=== PATIENT | male | born 1990 | race African-American/Black ===

== ENCOUNTER 2021-02-01 10:16 | Emergency (ER) | payer SELFPAY ==
[~2021-02-01] VITALS: Ht 177.8 cm; Wt 85.0 kg
[2021-02-01] MEDS ORDERED: IV NORMAL SALINE 1000ML BAG 1,000 ML IV SCH (10:30)
[2021-02-01] MEDS ORDERED: fentaNYL PF VIAL 100 MCG/2 ML VIAL IVP ONE (10:30)
[2021-02-01] MEDS ORDERED: ONDANSETRON PF 4 MG/2 ML VIAL. IVP ONE (10:30)
--- NOTE | 2021-02-01 10:32 | PHYS DOC ---
General Adult EDM: Chief Complaint: FLANK PAIN HPI: HPI: Patient is a 30-year-old male who presents to the emergency department for left upper quadrant pain that started this morning with nausea, vomiting and diarrhea. Patient states that he vomited 5-10 times today. He rates his pain 10 out of 10, does not radiate. He states that he took Catherine-Chilcoot, Tums and Tylenol prior to arrival. Patient is a daily drinker and drank a half a pint of liquor yesterday. Patient states that he has no medical history, surgical history. He denies any sick exposures, fevers, flank pain, blood in stools, dysuria, urinary frequency. Review of Systems: Review of Systems: Constitutional: See HPI GI: See HPI : See HPI Musculoskeletal: See HPI Heart Score: C/O Chest Pain: N/A Risk Factors: Risk Factors: DM, Current or recent (<one month) smoker, HTN, HLP, family history of CAD, obesity. Risk Scores: Score 0 - 3: 2.5% MACE over next 6 weeks - Discharge Home Score 4 - 6: 20.3% MACE over next 6 weeks - Admit for Clinical Observation Score 7 - 10: 72.7% MACE over next 6 weeks - Early Invasive Strategies Physical Exam: PE: Constitutional: Well developed, well nourished, no acute distress, non-toxic appearance. [] HENT: Normocephalic, atraumatic, bilateral external ears normal, oropharynx moist, no oral exudates, nose normal. [] Eyes: PERRL, EOMI, conjunctiva normal, no discharge. [] Neck: Normal range of motion, no stridor Cardiovascular:Heart rate regular rhythm, no murmur [] Lungs & Thorax: Bilateral breath sounds clear to auscultation [] Abdomen: Bowel sounds normal, soft, no guarding, no ridigity, negative murphys sign, negative rovsings sign, tenderness with palpation to LUQ, no rebound tenderness, no masses, no pulsatile masses. [] Skin: Warm, dry, no erythema, no rash. [] Back: No tenderness, no CVA tenderness. [] Extremities: No tenderness, no cyanosis, no clubbing, ROM intact, no edema. [] Neurologic: Alert and oriented X 3, normal motor function, normal sensory function, no focal deficits noted. [] Psychologic: Affect normal, judgement normal, mood normal. [] Current Patient Data: Labs: Laboratory Tests Test 02/01/21 10:25 02/01/21 10:44 Urine Collection Type Unknown Urine Color Delores Urine Clarity Clear Urine pH 7.0 Urine Specific [place] >=1.030 Urine Protein Negative mg/dL Urine Glucose (UA) Negative mg/dL Urine Ketones (Stick) Negative mg/dL Urine Blood Negative Urine Nitrite Negative Urine Bilirubin Negative Urine Urobilinogen Dipstick 0.2 mg/dL Urine Leukocyte Esterase Negative Urine RBC 0 /HPF Urine WBC 0 /HPF Urine Squamous Epithelial Cells Few /LPF Urine Bacteria 0 /HPF Urine Mucus Mod /LPF Urine Opiates Screen Neg Urine Methadone Screen Neg Urine Barbiturates Neg Urine Phencyclidine Screen Neg Urine Amphetamine/Methamphetamine Neg Urine Benzodiazepines Screen Neg Urine Cocaine Screen Pos Urine Cannabinoids Screen Pos Urine Ethyl Alcohol Neg White Blood Count 11.5 x10^3/uL Red Blood Count 5.14 x10^6/uL Hemoglobin 15.1 g/dL Hematocrit 45.5 % Mean Corpuscular Volume 89 fL Mean Corpuscular Hemoglobin 29 pg Mean Corpuscular Hemoglobin Concent 33 g/dL Red Cell Distribution Width 14.7 % Platelet Count 234 x10^3/uL Neutrophils (%) (Auto) 87 % Lymphocytes (%) (Auto) 9 % Monocytes (%) (Auto) 4 % Eosinophils (%) (Auto) 0 % Basophils (%) (Auto) 0 % Neutrophils # (Auto) 10.0 x10^3/uL Lymphocytes # (Auto) 1.0 x10^3/uL Monocytes # (Auto) 0.5 x10^3/uL Eosinophils # (Auto) 0.0 x10^3/uL Basophils # (Auto) 0.0 x10^3/uL Sodium Level 141 mmol/L Potassium Level 3.9 mmol/L Chloride Level 103 mmol/L Carbon Dioxide Level 27 mmol/L Anion Gap 11 Blood Urea Nitrogen 16 mg/dL Creatinine 0.8 mg/dL Estimated GFR (Cockcroft-Gault) 135.6 BUN/Creatinine Ratio 20 Glucose Level 102 mg/dL Calcium Level 9.1 mg/dL Total Bilirubin 0.5 mg/dL Aspartate Amino Transf (AST/SGOT) 19 U/L Alanine Aminotransferase (ALT/SGPT) 21 U/L Alkaline Phosphatase 66 U/L Total Protein 7.4 g/dL Albumin 3.8 g/dL Albumin/Globulin Ratio 1.1 Lipase 65 U/L Current Medications Medications (Trade) Dose Ordered Sig/Froilan Route PRN Reason Start Time Stop Time Status Last Admin Dose Admin Sodium Chloride 1,000 ml @ 1,000 mls/hr Q1H IV 02/01/21 10:30 02/01/21 11:29 DC 02/01/21 10:30 Fentanyl Citrate (Fentanyl 2ml Vial) 50 mcg 1X ONCE IVP 02/01/21 10:30 02/01/21 10:31 DC 02/01/21 10:43 Ondansetron HCl (Zofran) 4 mg 1X ONCE IVP 02/01/21 10:30 02/01/21 10:31 DC 02/01/21 10:43 Iohexol (Omnipaque 300 Mg/ml) 75 ml 1X ONCE IV 02/01/21 11:30 02/01/21 11:31 DC 02/01/21 11:41 Info (CONTRAST GIVEN -- Rx MONITORING) 1 each PRN DAILY PRN MC SEE COMMENTS 02/01/21 11:30 02/01/21 12:22 DC EKG: EKG: [] Radiology/Procedures: Radiology/Procedures: []PROCEDURE: CT ABD PELV W/ IV CONTRST ONLY EXAM: Abdomen and pelvis CT with intravenous contrast. HISTORY: Left upper quadrant pain. TECHNIQUE: Computed tomographic images of the abdomen and pelvis were obtained following the administration of intravenous contrast. Multiplanar reformatting was performed. *One or more of the following individualized dose reduction techniques were utilized for this examination: 1. Automated exposure control. 2. Adjustment of the mA and/or kV according to patient size. 3. Use of iterative reconstruction technique. COMPARISON: None. FINDINGS: The exam is limited due to motion. Evaluation of the lower thorax is unremarkable. No focal hepatic lesion is seen. The gallbladder, pancreas, spleen, adrenal glands and kidneys are unremarkable. The appendix is not seen. There are no secondary findings to suggest appendicitis. There is no bowel obstruction. There is no abnormal bowel wall thickening. There is no free air. The bladder is nearly empty. The aorta is normal in caliber. There is no lymphadenopathy. There is no acute or suspicious osseous finding. IMPRESSION: 1. No convincing acute abdominal or pelvic finding. 2. Limited exam due to motion. Electronically signed by: Radha Logan MD (02/01/2021 11:49 AM) [id number] DICTATED and SIGNED BY: RADHA LOGAN MD DATE: 02/01/21 [id number] 0 Course & Med Decision Making: Course & Med Decision Making Pertinent Labs and Imaging studies reviewed. (See chart for details) Patient presents to the emergency department for left upper quadrant pain with nausea, vomiting and diarrhea that started this morning. Patient is a daily drinker and drank a half a pint of liquor yesterday. Patient denies any urinary symptoms. Work-up in the ER consisted of blood work, urinalysis and CT imaging of abdomen and pelvis. Patient was treated with IV fluids, nausea medication and pain medication. Patient's urinalysis was unremarkable. Negative CBC, negative CMP, negative lipase. UDS was positive for cocaine and marijuana. Imaging of patient's abdomen and pelvis showed no acute findings. Patient was able to tolerate oral intake while in the ER. Patient be discharged home with nausea medication and advised to take Imodium [id number]. Patient will be Covid tested prior to ER departure will be notified of those results when they become available in approximately 2 days. I discussed with patient all findings and diagnostic testing as well as the need to follow-up with PCP for further evaluation and treatment or return to the ER if any new or worsening symptoms. Strict return precautions were also discussed at length. Patient voiced understanding and agreement with the plan. Patient is hemodynamically stable at the time of disposition. Dragon Disclaimer: Dragmikki Disclaimer: This electronic medical record was generated, in whole or in part, using a voice recognition dictation system. Departure Departure Impression: Primary Impression: Nausea & vomiting Qualified Codes: R11.2 - Nausea with vomiting, unspecified Additional Impression: Person under investigation for COVID-19 Disposition: 01 HOME / SELF CARE / HOMELESS Condition: GOOD Referrals: NO PCP (PCP) Patient Instructions: Nausea and Vomiting Additional Instructions: You were seen in the emergency department today for nausea, vomiting, diarrhea and abdominal pain. Your work-up in the ER was unremarkable. Your urine drug screen was positive for cocaine and marijuana, oftentimes people experience vomiting with marijuana. Please discontinue drug and alcohol use. You will be discharged home with nausea medication, please take this as directed. If you experience any additional diarrhea at home you can take Imodium [id number]. Please stick to a bland diet, we recommend a brat diet which includes bananas, rice, applesauce and toast. Please avoid eating any foods that are spicy, greasy or fatty. You were tested in the emergency department for COVID-19, you will be notified of those results when they become available in approximately 2 days. Please self isolate until you receive these results. Please follow-up with your primary care provider tomorrow regarding your ER visit. Return to the emergency department if you develop intractable nausea or vomiting, blood in your stools or vomit, severe abdominal pain, severe back pain, high fevers refractory to treatment or any new or worsening concerns. Scripts Ondansetron (ONDANSETRON ODT) 4 Mg Tab.rapdis 1 TAB PO PRN Q6-8HRS for 5 Days, #20 TAB 0 Refills Prov: BEAN SCOTT APRN 02/01/21 BEAN SCOTT APRN Feb 01, 2021 10:32
[2021-02-01 10:45] LABS: BILIRUBIN,URINE NEGATIVE (NEG); CLARITY,URINE CLEAR; COLOR,URINE AMBER; NITRITE,URINE NEGATIVE (NEG); PROTEIN,URINE NEGATIVE (NEG-TRACE); UROBILINOGEN,URINE 0.2 mg/dL (0.2 mg/dL)
[2021-02-01 10:50] LABS: BARBITURATES NEG (NEG); BENZODIAZEPINES NEG (NEG); CANNABINOIDS POS (NEG); COCAINE POS (NEG); METHADONE NEG (NEG); OPIATES NEG (NEG); PHENCYCLIDINE NEG (NEG)
[2021-02-01 10:52] LABS: AMPHETAMINE/METHAMPHETAMINE NEG (NEG)
[2021-02-01 11:09] LABS: BACTERIA,URINE 0 /HPF (0-FEW); RBC,URINE 0 /HPF (0-2); WBC,URINE 0 /HPF (0-4)
[2021-02-01 11:10] LABS: BASO % 0 % (0-3); CALCIUM 9.1 mg/dL (8.5-10.1); CREATININE 0.8 mg/dL (0.7-1.3); EOS % 0 % (0-3); GFR 135.6; HEMATOCRIT 45.5 % (39.0-53.0); HEMOGLOBIN 15.1 g/dL (13.0-17.5); LYMPH % 9 % (24-48); MEAN CORPUSCULAR HEMOGLOBIN 29 pg (25-35); MEAN CORPUSCULAR HGB CONC 33 g/dL (31-37); MEAN CORPUSCULAR VOLUME 89 fL (79-100); MONO # 0.5 x10^3/uL (0.0-1.1); MONO % 4 % (0-9); NEUT % 87 % (31-73); PLATELET COUNT 234 x10^3/uL (140-400); POTASSIUM 3.9 mmol/L (3.5-5.1); RED BLOOD COUNT 5.14 x10^6/uL (4.30-5.70); RED CELL DISTRIBUTION WIDTH 14.7 % (11.5-14.5); WHITE BLOOD COUNT 11.5 x10^3/uL (4.0-11.0)
[2021-02-01 11:16] LABS: ALBUMIN 3.8 g/dL (3.4-5.0); ALBUMIN/GLOBULIN RATIO 1.1 (1.0-1.7); TOTAL BILIRUBIN 0.5 mg/dL (0.2-1.0); TOTAL PROTEIN 7.4 g/dL (6.4-8.2)
[2021-02-01] MEDS ORDERED: CONTRAST GIVEN. MC PRN (11:30)
[2021-02-01] MEDS ORDERED: IOHEXOL 300 MG/ML 100ML VIAL. IV ONE (11:30)
--- NOTE | 2021-02-01 11:51 | RAD ---
EXAM: Abdomen and pelvis CT with intravenous contrast. HISTORY: Left upper quadrant pain. TECHNIQUE: Computed tomographic images of the abdomen and pelvis were obtained following the administ ration of intravenous contrast. Multiplanar reformatting was performed. *One or more of the following individualized dose reduction techniques were utilized for this examina tion: 1. Automated exposure control. 2. Adjustment of the mA and/or kV according to patient size. 3. Use of iterative reconstruction technique. COMPARISON: None. FINDINGS: The exam is limited due to motion. Evaluation of the lower thorax is unremarkable. No focal hepatic lesion is seen. The gallbladder, pancreas, spleen, adrenal glands and kidneys are unremarkab le. The appendix is not seen. There are no secondary findings to suggest appendicitis. There is no melinda wel obstruction. There is no abnormal bowel wall thickening. There is no free air. The bladder is keny rly empty. The aorta is normal in caliber. There is no lymphadenopathy. There is no acute or suspicio us osseous finding. IMPRESSION: 1. No convincing acute abdominal or pelvic finding. 2. Limited exam due to motion. Electronically signed by: Radha Logan MD (02/01/2021 11:49 AM) [id number]
[2021-02-01] MEDS ORDERED: ONDA4TAB12 PO (12:00)
[2021-02-01 12:13] VITALS: BP 140/63
--- NOTE | 2021-02-03 11:48 | NUR ---
IP: Informed pt of negative covid test. Pt verbalized understanding.
== END 2021-02-01 12:22 | disposition home or self-care (01) ==
LOC: ER 10:16
DX: R10.12 Left upper quadrant pain (principal); R11.2 Nausea with vomiting, unspecified; R19.7 Diarrhea, unspecified; Z20.822 Contact with and (suspected) exposure to COVID-19
CPT/HCPCS: 36415; 74177; 80053; 80307; 81001; 83690; 85025; 96361; 96374; 96375; 99285; J2405; J3010; J7030; Q9967; U0003; U0005